=== PATIENT | female | born 1965 | race Caucasian/White ===

== ENCOUNTER 2016-05-26 19:27 | Emergency (ER) | payer OTHER ==
[~2016-05-26 19:27] MED LIST: AZITHROMYCIN250 M1 PO; GUAIFENESIN-COD10 ML PO; MEDROL4 M2 PO; NASONEX17 GM NASB; TESSALON PERLE100 M1 PO
--- NOTE | 2016-05-26 19:41 | ED INFLUENZA/URI COMPLAINT ---
History of Present Illness General Chief Complaint: General Adult Stated Complaint: "I THINK I HAVE BRONCHITIS" Source: patient Exam Limitations: no limitations Vital Signs & Intake/Output Vital Signs & Intake/Output Vital Signs Date Time Temp Pulse Resp B/P Pulse O2 O2 Flow FiO2 Ox Delivery Rate 05/26 2013 98 05/27 1931 97.8 77 20 130/85 99 Room Air Allergies Coded Allergies: MDX - Amoxicillin (AMOXICILLIN) (11/07/10) Reconcile Medications Albuterol Sulfate (Proair Hfa) 90 MCG HFA.AER.AD 2 PUF INH Q4-6 PRN PRN DYSPNEA Azithromycin 250 MG TABLET 1 DP PO AD DENTAL INFECTION (Reported) 2 the first day followed by 1 for days 2-5 Azithromycin (Zithromax) 250 MG TABLET 1 DP PO AD BRONCHITIS 2 the first day followed by 1 for days 2-5 Benzonatate (Tessalon Perle) 100 MG CAPSULE 1 CAP PO TID PRN URI Methylprednisolone. (Medrol) 4 MG TAB.DS.PK 1 DP PO AD INFLAMMATION 6 on day 1 then reduce by one tablet daily until gone Methylprednisolone. (Medrol) 4 MG TAB.DS.PK 1 DP PO AD INFLAMMATION 6 on day 1 then reduce by one tablet daily until gone Mometasone Furoate (Nasonex) 50 MCG SPRAY.PUMP 2 SPRAY NASB DAILY CONGESTION Robitussin AC (Guaifenesin-Codeine Syrup) 200 MG-20 MG/10 ML LIQUID 10 ML PO Q6 PRN COUGH Robitussin AC (Guaifenesin-Codeine Syrup) 200 MG-20 MG/10 ML LIQUID 10 ML PO TID PRN COUGH Triage Note: PER PT COUGH X 2 DAYS POST NASAL DRIP. HAD BRONCHITIS IN FEBRUARY. FEELS SAME. PER PT ONLY THING THAT DOES NOT UPSET MY STOMACH IS A ZPAK. Triage Nurses Notes Reviewed? yes Onset: Abrupt Duration: day(s): (2) Timing: multiple episodes today Severity: moderate No Modifying Factors: none Associated Symptoms: cough, shortness of breath HPI: 51 year old female who presents to the ER for chief complaint of cough, post nasal drip and thick yellow sputum x 2 days. She reports she had similar symptoms in February and was diagnosed with bronchitis. She denies any high fever or chills. Past History Travel History Traveled to [place] past 21 day No Medical History Any Pertinent Medical History? see below for history Neurological: NONE EENT: NONE Cardiovascular: NONE Respiratory: bronchitis Gastrointestinal: NONE Hepatic: NONE Renal: NONE Musculoskeletal: NONE Psychiatric: NONE Endocrine: NONE Surgical History Surgical History: non-contributory Psychosocial History What is your primary language Vincentian Tobacco Use: Never used Family History Hx Contributory? No Review of Systems Review of Systems Constitutional: Denies: chills, fever. EENTM: Denies: throat pain. Respiratory: Reports: cough, short of breath, sputum production. Cardiovascular: Denies: chest pain, palpitations. GI: Denies: abdominal pain. Genitourinary: Reports: no symptoms. Musculoskeletal: Reports: no symptoms. Skin: Reports: no symptoms. Neurological/Psychological: Reports: no symptoms. Hematologic/Endocrine: Denies: bruising, bleeding, polyuria, polydipsia. Immunologic/Allergic: Denies: splenectomy. All Other Systems: Reviewed and Negative Physical Exam Physical Exam General Appearance: well developed/nourished, alert, awake Head: atraumatic, normal appearance Eyes: Bilateral: normal appearance, PERRL, EOMI. Ears, Nose, Throat: normal ENT inspection, hearing grossly normal Neck: normal inspection, supple, full range of motion Respiratory: decreased breath sounds, wheezing Cardiovascular: regular rate/rhythm, normal peripheral pulses Peripheral Pulses: 2+ radial (R), 2+ radial (L) Gastrointestinal: normal bowel sounds, soft, non-tender Extremities: normal inspection, normal range of motion, no edema Neurologic/Psych: awake, alert, oriented x 3 Skin: intact, normal color, warm/dry Core Measures Severe Sepsis Present: No Septic Shock Present: No Progress Differential Diagnosis: pneumonia, BRONCHITIS, URI Plan of Care: Orders Procedure Date/time Status RT ED ORDERS 05/26 1949 Active duoneb, prednisone, cxr ordered. ' Patient improved after duoneb. Results of CXR discussed with the patietn. Copy of results given to patient to follow up with. (MEREDITH PARRY,JOSE) Diagnostic Imaging: Viewed by Me: Radiology Read. Discussed w/RAD: Radiology Read. CXR Impression: PATIENT: JUSTIN GILMORE PRESENT AGE: 51 PATIENT ACCOUNT NO: [id number] : 64 LOCATION: [facility] ORDERING PHYSICIAN: JOSE HARPER MD SERVICE DATE: 05/26/16-1949 EXAM TYPE: RAD - XRY-CHEST XRAY , PA AND LATERAL EXAMINATION: CHEST 2 VIEWS CLINICAL INFORMATION: Cough, shortness of breath. Sputum production. COMPARISON: None. TECHNIQUE: PA and lateral views of the chest were obtained. FINDINGS: The cardiac silhouette is not enlarged. The mediastinal and hilar contours are unremarkable. There are neither pleural effusions nor pneumothoraces. There are no consolidations. Overlying the left clavicle there is an approximately 18 mm rounded high density focus. The osseous structures are unremarkable. IMPRESSION: No evidence for acute disease. 18 mm density overlying the lateral left clavicle. This is nonspecific and could correspond to the residua of prior injury or represent a calcified lymph node. Correlate with physical exam. DICTATED BY: MARION CARVALHO MD DATE/TIME DICTATED:05/26/162013 DRINK WAITER:UMAIR DATE/TIME TRANSCRIBED:05/26/162013 CONFIDENTIAL, DO NOT COPY WITHOUT APPROPRIATE AUTHORIZATION. <Electronically signed in Other Vendor System> SIGNED BY: MARION CARVALHO MD 05/26/162019 Initial ED EKG: none Departure Departure Time of Disposition: 2036 Disposition: HOME OR SELF CARE Condition: Stable Clinical Impression Primary Impression: Bronchitis Secondary Impressions: Calcified lymph nodes Referrals: RAMA PARRY,ENA Centeno (PCP/Family) Additional Instructions: Take the medications as prescribed. Please follow-up the chest x-ray result with your primary care doctor in the office. Return to the ER for any changing or worsening symptoms. Departure Forms: Customer Survey General Discharge Information Prescriptions: Current Visit Scripts Methylprednisolone. (Medrol) 1 DP PO AD #1 DP 6 on day 1 then reduce by one tablet daily until gone Albuterol Sulfate (Proair Hfa) 2 PUF INH Q4-6 PRN PRN DYSPNEA #1 INHAL Azithromycin (Zithromax) 1 DP PO AD #6 TAB 2 the first day followed by 1 for days 2-5 Robitussin AC (Guaifenesin-Codeine Syrup) 10 ML PO Q6 PRN COUGH #150 ML
--- NOTE | 2016-05-26 20:20 | RADIOLOGY REPORT ---
EXAMINATION: CHEST 2 VIEWS CLINICAL INFORMATION: Cough, shortness of breath. Sputum production. COMPARISON: None. TECHNIQUE: PA and lateral views of the chest were obtained. FINDINGS: The cardiac silhouette is not enlarged. The mediastinal and hilar contours are unremarkable. There are neither pleural effusions nor pneumothoraces. There are no consolidations. Overlying the left clavicle there is an approximately 18 mm rounded high density focus. The osseous structures are unremarkable. IMPRESSION: No evidence for acute disease. 18 mm density overlying the lateral left clavicle. This is nonspecific and could correspond to the residua of prior injury or represent a calcified lymph node. Correlate with physical exam.
[2016-05-26] MEDS ORDERED: MEDROL4 M2 PO (20:39)
[2016-05-26] MEDS ORDERED: PROAIR HFA8.5 GM INH (20:39)
[2016-05-26] MEDS ORDERED: ZITHROMAX250 M2 PO (20:39)
[2016-05-26] MEDS ORDERED: GUAIFENESIN-COD10 ML PO (20:39)
[2016-05-26 21:18] VITALS: BP 134/82
[2016-08-25] MEDS ORDERED: MACROBID 100 M100 MG PO (15:26)
[2016-08-25] MEDS ORDERED: CYCLOBENZAPRINE5 M2 PO (15:26)
[2016-08-25] MEDS ORDERED: NAPROXEN500 M2 PO (15:26)
== END 2016-05-26 21:20 ==
LOC: ERH 19:27
DX: I89.8 Other specified noninfective disorders of lymphatic vessels and lymph nodes (principal)
CPT/HCPCS: 1263